=== PATIENT | male | born 1975 | race Caucasian/White ===

== ENCOUNTER 2017-11-27 14:13 | Emergency (ER) | payer MEDICAID ==
[2017-11-27 14:29] VITALS: TEMP 97.5
[2017-11-27] MEDS ORDERED: KETOROLAC 30 MG/1 ML SDV IVP ONE ×2 (16:20→18:37)
[2017-11-27] MEDS ORDERED: METOCLOPRAMIDE 10 MG/2 ML VIAL IVP ONE (16:20)
[2017-11-27] MEDS ORDERED: NS 1,000 ML IV ONE ×2 (16:20→18:37)
--- NOTE | 2017-11-27 16:24 | EDPHY ---
H & P Time Seen by Provider: 11/27/17 16:05 HPI/ROS: CHIEF COMPLAINT: Migraine headache HISTORY OF PRESENT ILLNESS: Patient was diagnosed at 16 years old and has had migraines intermittently ever since. He had his typical migraine starting 3 days ago not thunderclap in onset or worst of life but isn't going away. It is identical to previous and it is the right side throbbing worse with light and associated with nausea. Symptoms severe today. Not better worse with anything. REVIEW OF SYSTEMS: Eye: no change in vision ENT: Right-sided dental pain from losing of filling Cardiac: no chest pain or syncope Pulmonary: no cough or SOB Abdomen: no vomiting, diarrhea, abdominal pain Musculoskeletal: No neck pain Skin: no rash Neuro: HPI no confusion weakness or numbness Constitutional: no fever : no urinary symptoms A comprehensive 10 point review of systems is otherwise negative aside from elements mentioned in the history of present illness. PAST MEDICAL HISTORY: Migraine headaches, asthma, cholecystectomy Social history: Tobacco smoker General Appearance: Alert and conversant, cooperative. Eyes: No scleral icterus. ENT, Mouth: Normal mucous membranes. Normal tympanic membranes. No trismus. No dental tenderness to percussion. Respiratory: Normal respiratory effort, breath sounds equal, lungs are clear to auscultation. Cardiovascular: Regular rate and rhythm. Gastrointestinal: Abdomen is soft and non tender. Neurological: Alert, extraocular motion intact, pupils equal and reactive. Normal motor and sensory in extremities, face symmetric Skin: Warm and dry, no rashes. Musculoskeletal: Normal range of motion of the neck, no meningeal signs. Psychiatric: Not agitated. Emergency Department course/MDM: Typical migraine, does not have red flags to suggest high risk for intracranial mass, bleed, [employer] infection, stroke. Toradol 15 mg IV, dexamethasone 10 mg IV, metoclopramide 10 mg IV, Benadryl 25 mg IV 1735: Patient is starting to feel better, less headache. 1834: Need additional pain medication, 0.5 mg IV Dilaudid, Toradol 15 mg IV. 1923: Feels better, stable for discharge. Smoking Status: Current every day smoker Constitutional: Initial Vital Signs Temperature (C) 36.4 C 11/27/17 14:26 Heart Rate 113 H 11/27/17 14:26 Respiratory Rate 18 11/27/17 14:26 Blood Pressure 129/90 H 11/27/17 14:26 O2 Sat (%) 96 11/27/17 14:26 O2 Delivery Mode Room Air Allergies/Adverse Reactions: hydrocodone bitartrate [From Vicodin] Allergy (Mild, Verified 11/09/16 18:42) Itching Home Medications: Medication Instructions Recorded [place]-3 Fatty Acids [Fish Oil 1000 1,000 mg PO DAILY 11/09/16 mg (*)] GABAPENTIN 11/27/17 Medical Decision Making Differential Diagnosis: Differential diagnosis considered for headache including but not limited to subarachnoid hemorrhage, migraine headache, tension headache and infectious causes such as meningitis, pharyngitis and sinusitis. - Data Points Medications Given: Discontinued Medications Dexamethasone (Decadron Injection) 10 mg IVP EDNOW ONE Stop: 11/27/17 16:21 Last Admin: 11/27/17 16:48 Dose: 10 mg Diphenhydramine HCl (Benadryl Injection) 25 mg IVP EDNOW ONE Stop: 11/27/17 16:21 Last Admin: 11/27/17 16:42 Dose: 25 mg Hydromorphone HCl (Dilaudid) 0.5 mg IVP EDNOW ONE Stop: 11/27/17 18:38 Last Admin: 11/27/17 18:47 Dose: 0.5 mg Sodium Chloride (Ns) 1,000 mls @ 0 mls/hr IV ONCE ONE; Wide Open PRN Reason: Protocol Stop: 11/27/17 16:21 Last Admin: 11/27/17 16:41 Dose: 1,000 mls Sodium Chloride (Ns) 1,000 mls @ 0 mls/hr IV EDNOW ONE; Wide Open PRN Reason: Protocol Stop: 11/27/17 18:38 Last Admin: 11/27/17 18:46 Dose: 1,000 mls Ketorolac Tromethamine (Toradol) 15 mg IVP EDNOW ONE Stop: 11/27/17 16:21 Last Admin: 11/27/17 16:44 Dose: 15 mg Ketorolac Tromethamine (Toradol) 15 mg IVP EDNOW ONE Stop: 11/27/17 18:38 Last Admin: 11/27/17 18:47 Dose: 15 mg Metoclopramide HCl (Reglan Injection) 10 mg IVP EDNOW ONE Stop: 11/27/17 16:21 Last Admin: 11/27/17 16:47 Dose: Not Given Promethazine HCl (Phenergan) 12.5 mg IVP EDNOW ONE Stop: 11/27/17 16:40 Last Admin: 11/27/17 16:48 Dose: 12.5 mg Departure - Departure Disposition: Home, Routine, Self-Care Clinical Impression: Migraine headache Qualifiers: Migraine type: unspecified Status migrainosus presence: without status migrainosus Intractability: not intractable Qualified Code(s): G43.909 - Migraine, unspecified, not intractable, without status migrainosus Condition: Good Instructions: Migraine Headache (ED) Referrals: Indra Abdi MD [Primary Care Provider] - As per Instructions
[2017-11-27] MEDS ORDERED: ONDANSETRON 4 MG/2 ML VIAL ONE (16:31)
[2017-11-27] MEDS ORDERED: PROMETHAZINE HCL 25 MG/ML INJ ONE (16:39)
[2017-11-27] MEDS ORDERED: PROMETHAZINE HCL 25 MG/ML INJ IVP ONE (16:39)
[2017-11-27] MEDS: DEXAMETHASONE 10 MG/ML VIAL IVP ONE ×2 (16:45→16:48)
[2017-11-27 17:14] VITALS: O2SAT 94
[2017-11-27] MEDS ORDERED: HYDROmorphONE/DILAUDID 1 MG/ML INJ IVP ONE (18:37)
[2017-11-27 19:18] VITALS: BP 116/71; PULSE 80; RESP 18
== END 2017-11-27 19:25 | disposition home or self-care (01) ==
DX: G43.909 Migraine, unspecified, not intractable, without status migrainosus (principal); J45.909 Unspecified asthma, uncomplicated; F17.200 Nicotine dependence, unspecified, uncomplicated; E86.9 Volume depletion, unspecified
CPT/HCPCS: 96374; J1100; J1170; J1200; J1885; J2405; J2550

== ENCOUNTER 2019-02-24 17:42 | Emergency (ER) | payer MEDICAID ==
[2019-02-24] MEDS ORDERED: NS 1,000 ML IV ONE (18:20)
[2019-02-24] MEDS ORDERED: ONDANSETRON 4 MG/2 ML VIAL IVP ONE (18:21)
[2019-02-24] MEDS ORDERED: KETOROLAC 15 MG/1 ML SDV IVP ONE (18:25)
--- NOTE | 2019-02-24 18:25 | EDPHY ---
H & P Stated Complaint: R ear ache - Personal History Current Tetanus/Diphtheria Vaccine: Yes - Medical/Surgical History Hx Asthma: Yes Hx Chronic Respiratory Disease: No Hx Diabetes: No Hx Cardiac Disease: No Hx Renal Disease: No Hx Cirrhosis: No Hx Alcoholism: No Hx HIV/AIDS: No Hx Splenectomy or Spleen Trauma: No Other PMH: TREATED FOR TB, NEG CXR. ASTHMA, SMOKE INHALATION; cholecystectomy, migraines - Social History Smoking Status: Current every day smoker Time Seen by Provider: 02/24/19 17:49 HPI/ROS: CHIEF COMPLAINT: Fever, right ear pain, vomiting HISTORY OF PRESENT ILLNESS: 43-year-old male presents with fever and vomiting. Onset of sore throat 3 days ago. The sore throat is constant and moderate. Associated with multiple episodes of vomiting and inability to tolerate oral fluids today. Right ear pain is moderate and started yesterday. Associated with subjective fever, chills, myalgias and fatigue. REVIEW OF SYSTEMS: complete 10 point ROS reviewed and is negative except for the noted elements in the HPI (Alexia Olmos) - Physical Exam Exam: General Appearance: Alert, pleasant Eyes: Pupils equal and round, no conjunctival injection ENT, Mouth: Mucous membranes moist, pharyngeal erythema with exudate, right TM no light reflex, bulging Neck: Normal inspection, shotty adenopathy Respiratory: Lungs are clear to auscultation Cardiovascular: Regular rate and rhythm Gastrointestinal: Abdomen is soft and nontender Neurological: A&O, nonfocal, normal gait Skin: Warm and dry Extremities: Normal inspection Psychiatric: Mood and affect normal (Alexia Olmos) Constitutional: Initial Vital Signs Temperature (C) 37.5 C 02/24/19 17:44 Heart Rate 106 H 02/24/19 17:44 Respiratory Rate 18 02/24/19 17:44 Blood Pressure 146/97 H 02/24/19 17:44 O2 Sat (%) 97 02/24/19 17:44 O2 Delivery Mode Room Air Allergies/Adverse Reactions: hydrocodone bitartrate [From Vicodin] Allergy (Mild, Verified 02/24/19 17:46) Itching Home Medications: Medication Instructions Recorded [place]-3 Fatty Acids [Fish Oil 1000 1,000 mg PO DAILY 11/09/16 mg (*)] GABAPENTIN 11/27/17 Azithromycin [Zithromax] 250 mg PO DAILY #6 tab 02/24/19 Ondansetron Odt [Zofran Odt 4 mg 4 mg PO Q4 PRN #6 tab 02/24/19 (*)] Medical Decision Making ED Course/Re-evaluation: This patient presents with left otitis media and dehydration secondary to persistent vomiting. IV normal saline 1 L and Zofran 4 mg IV given. Toradol IV given for pain. Signed over to Dr. Sands at 1900. Plan for discharge home if tolerating oral fluids. Rx for Zithromax for otitis media and Zofran written. Warning signs discussed. (Alexia Olmos) 2047: Patient is safe to be discharged home as he feels better. Return precautions provided; patient is comfortable with this plan. (Geovanni Sands) Differential Diagnosis: Differential diagnosis includes but is not limited to pneumonia, otitis media, peritonsillar abscess, retropharyngeal abscess, meningitis. (Alexia Olmos) - Data Points Laboratory Results: Laboratory Results 02/24/19 18:55 02/24/19 18:55 02/24/19 02/24/19 02/24/19 Unknown 18:55 18:55 WBC 15.53 10^3/uL H 10^3/uL (3.80-9.50) RBC 5.01 10^6/uL 10^6/uL (4.40-6.38) Hgb 16.1 g/dL g/dL (13.7-17.5) Hct 47.1 % % (40.0-51.0) MCV 94.0 fL fL (81.5-99.8) MCH 32.1 pg pg (27.9-34.1) MCHC 34.2 g/dL g/dL (32.4-36.7) RDW 13.3 % % (11.5-15.2) Plt Count 147 10^3/uL L 10^3/uL (150-400) MPV 10.3 fL fL (8.7-11.7) Neut % (Auto) 80.8 % H % (39.3-74.2) Lymph % (Auto) 9.5 % L % (15.0-45.0) Kings % (Auto) 8.2 % % (4.5-13.0) Eos % (Auto) 0.6 % % (0.6-7.6) Baso % (Auto) 0.5 % % (0.3-1.7) Nucleat RBC Rel Count 0.0 % % (0.0-0.2) Absolute Neuts (auto) 12.56 10^3/uL H 10^3/uL (1.70-6.50) Absolute Lymphs (auto) 1.48 10^3/uL 10^3/uL (1.00-3.00) Absolute Monos (auto) 1.27 10^3/uL H 10^3/uL (0.30-0.80) Absolute Eos (auto) 0.09 10^3/uL 10^3/uL (0.03-0.40) Absolute Basos (auto) 0.07 10^3/uL 10^3/uL (0.02-0.10) Absolute Nucleated RBC 0.00 10^3/uL 10^3/uL (0-0.01) Immature Gran % 0.4 % % (0.0-1.1) Immature Gran # 0.06 10^3/uL 10^3/uL (0.00-0.10) Sodium 135 mEq/L mEq/L (135-145) Potassium 4.0 mEq/L mEq/L (3.5-5.2) Chloride 102 mEq/L mEq/L (97-110) Carbon Dioxide 25 mEq/l mEq/l (22-31) Anion Gap 8 mEq/L mEq/L (6-14) BUN 9 mg/dL mg/dL (7-23) Creatinine 0.7 mg/dL mg/dL (0.7-1.3) Estimated GFR > 60 Glucose 122 mg/dL H mg/dL (70-100) Calcium 9.4 mg/dL mg/dL (8.5-10.4) Nasal Influenza A PCR Nasal Influenza B PCR Group A Strep Screen Group A Strep DNA Pending 02/24/19 02/24/19 18:45 18:45 WBC RBC Hgb Hct MCV MCH MCHC RDW Plt Count MPV Neut % (Auto) Lymph % (Auto) Kings % (Auto) Eos % (Auto) Baso % (Auto) Nucleat RBC Rel Count Absolute Neuts (auto) Absolute Lymphs (auto) Absolute Monos (auto) Absolute Eos (auto) Absolute Basos (auto) Absolute Nucleated RBC Immature Gran % Immature Gran # Sodium Potassium Chloride Carbon Dioxide Anion Gap BUN Creatinine Estimated GFR Glucose Calcium Nasal Influenza A PCR NEGATIVE FOR FLU A (NEGATIVE) Nasal Influenza B PCR NEGATIVE FOR FLU B (NEGATIVE) Group A Strep Screen NEGATIVE (NEGATIVE) Group A Strep DNA Medications Given: Discontinued Medications Diphenhydramine HCl (Benadryl Injection) 25 mg IVP EDNOW ONE Stop: 02/24/19 20:05 Last Admin: 02/24/19 20:07 Dose: 25 mg Sodium Chloride (Ns) 1,000 mls @ 0 mls/hr IV ONCE ONE; Wide Open PRN Reason: Protocol Stop: 02/24/19 18:21 Last Admin: 02/24/19 19:04 Dose: 1,000 mls Ketorolac Tromethamine (Toradol) 15 mg IVP EDNOW ONE Stop: 02/24/19 18:26 Last Admin: 02/24/19 19:04 Dose: 15 mg Ondansetron HCl (Zofran) 4 mg IVP EDNOW ONE Stop: 02/24/19 18:22 Last Admin: 02/24/19 19:05 Dose: 4 mg Departure - Departure Disposition: Home, Routine, Self-Care Clinical Impression: Dehydration, Vomiting Otitis media Qualifiers: Otitis media type: suppurative Chronicity: acute Laterality: right Recurrence: non-recurrent Spontaneous tympanic membrane rupture: without spontaneous rupture Qualified Code(s): H66.001 - Acute suppurative otitis media without spontaneous rupture of ear drum, right ear Condition: Good Instructions: Azithromycin (By mouth), Ondansetron (By mouth), Ear Infection ( ED), Acute Nausea and Vomiting (ED) Additional Instructions: Ibuprofen 600 mg 3 times daily while the pain and fever persist. Clear liquids for 24 hours. Gradually increase diet as tolerated. Return for worsening symptoms or any concerns. Referrals: Kanika Sawant MD [Medical Doctor] - 2-3 days, if not improved Prescriptions: Azithromycin [Zithromax] 250 mg PO DAILY #6 tab Ondansetron Odt [Zofran Odt 4 mg (*)] 4 mg PO Q4 PRN #6 tab PRN Reason: Nausea
[2019-02-24 19:17] LABS: PLATELET COUNT 147 10^3/uL (150-400)
[2019-02-24 20:44] VITALS: BP 107/70
[2019-02-25 09:05] LABS: GROUP A STREP DNA (THROAT) POSITIVE (NEGATIVE)
== END 2019-02-24 21:00 | disposition home or self-care (01) ==
DX: H66.001 Acute suppurative otitis media without spontaneous rupture of ear drum, right ear (principal); E86.0 Dehydration
CPT/HCPCS: 96374; J1200; J1885; J2405